=== PATIENT | female | born 1975 ===

== ENCOUNTER → 2019-01-12 | Emergency (ER) | payer OTHER ==
[~2019-01-12] VITALS: Ht 162.6 cm; Wt 71.7 kg
[~2019-01-12] MED LIST: CARAFATE1 GM; CIPRO500 MG PO; HYZAAR 100-251 EACH; LEVSIN/SL0.125 MG SL; ZANTAC300 MG; ZEGERID 40 MG1 EACH
== END | disposition home or self-care (01) ==
LOC: ER 20:25
DX: N39.0 Urinary tract infection, site not specified (principal); R10.84 Generalized abdominal pain